=== PATIENT | female | born 1950 | race Caucasian/White ===

== ENCOUNTER 2017-05-13 11:25 | Day surgery (SDC) | payer OTHER, BC ==
[2017-05-13] MEDS ORDERED: MIDAZOLAM 2 MG/2 ML VIAL IVP ONE (11:29)
[2017-05-13] MEDS ORDERED: BENZOCAINE UNIT DOSE SPRAY HURRICAINE MM ONE (11:29)
[2017-05-13] MEDS ORDERED: ATROPINE SULFATE 1 MG/10 ML SYR IVP ONE (11:29)
[2017-05-13] MEDS ORDERED: fentaNYL 100 MCG/2 ML INJ IVP ONE (11:29)
[2017-05-13] MEDS ORDERED: NS 500 ML IV ONE (11:29)
--- NOTE | 2017-05-13 11:46 | CPEKG ---
Heart Rate: 129 RR Interval: 465 P-R Interval: 168 QRSD Interval: 80 QT Interval: 296 QTC Interval: 434 P [place]: 99 QRS [place]: 260 T Wave [place]: 55 EKG Severity - ABNORMAL ECG - EKG Impression: POSSIBLE INFERIOR INFARCT, AGE INDETERMINATE EKG Impression: ATRIAL FLUTTER, A-RATE 250 Electronically Signed By: Mannie Cid 13-May-2017 16:06:38
[2017-05-13 12:11] LABS: INR 1.02 (0.83-1.16); PROTIME(PATIENT) 13.6 SEC (12.0-15.0)
[2017-05-13] MEDS ORDERED: APIXABAN 5 MG TAB PO ONE (13:15)
--- NOTE | 2017-05-13 15:10 | PDHPUP ---
History & Physical Update H&P update statement: This history and physical update is based on an assessment of the patient which was completed after admission or registration (within 24 hours), but prior to the surgery/procedure. H&P update: H&P reviewed & patient examined, no change in patient's condition since H&P completed
[2017-05-13] MEDS ORDERED: LIDOCAINE 2% 100 MG/5 ML SYR ONE (15:11)
[2017-05-13] MEDS ORDERED: PROPOFOL 200 MG/20 ML VIAL ONE (15:11)
--- NOTE | 2017-05-13 15:29 | PDTEE1 ---
DEREK Cardioversion Procedure Procedure: electrical cardioversion, transesophageal echo Indications: other (Atrial Flutter) Consent: signed and in chart Anticoagulation: eliquis Procedural Details: Pads were placed in anterior-posterior position. DEREK probe was advanced and standard images obtained. There is no evidence of left atrial or left atrial appendage thrombus. Synchronized cardioversion attempt #1: 50J Synchronized cardioversion attempt #2: 100J Results: normal sinus rhythm Conclusions: other (Initial CV resulted in AFIB. Subsequnetly CV to NSR.)
--- NOTE | 2017-05-13 15:44 | CPEKG ---
Heart Rate: 72 RR Interval: 833 P-R Interval: 228 QRSD Interval: 86 QT Interval: 404 QTC Interval: 443 P [place]: 66 QRS [place]: -57 T Wave [place]: 51 EKG Severity - ABNORMAL ECG - EKG Impression: SINUS RHYTHM EKG Impression: FIRST DEGREE AV BLOCK EKG Impression: LEFT ATRIAL ABNORMALITY EKG Impression: LEFT ANTERIOR FASCICULAR BLOCK Electronically Signed By: Mannie Cid 13-May-2017 16:05:25
--- NOTE | 2017-05-13 16:23 | PDANEPAE ---
ANE History of Present Illness Patient presents for DEREK/Cardioversion ANE Past Medical History - Pulmonary History Hx Sleep Apnea: No ANE Review of Systems Review of Systems: ANE Patient History - Allergies Allergies/Adverse Reactions: No Allergies [NKDA] Allergy (Verified 05/13/17 11:29) - Home Medications Home medications: home medication list seen and reviewed - NPO status NPO Status: no food or drink >8 hours - Anes Hx Anes Hx: no prior problems - Smoking Hx Smoking Status: Former smoker ANE Labs/Vital Signs - Labs Result Diagrams: 05/13/17 11:45 - Vital Signs Height: 172.72 cm Weight: 80.739 kg ANE Physical Exam - Airway Neck exam: FROM Mallampati Score: Class 2 Mouth exam: normal dental/mouth exam - Pulmonary Pulmonary: no respiratory distress - Cardiovascular Cardiovascular: pulses symmetric bilaterally, other - ASA Status ASA Status: II ANE Anesthesia Plan Anesthesia Plan: GA with mask (RBA discussed)
--- NOTE | 2017-05-13 16:23 | POSTANESTH ---
Post Anesthetic Evaluation Cardiovascular Status: Similar to Pre-Op Cond Respiratory Status: Similar to Pre-op Cond. Level of Consciousness/Mental Status: Alert and Oriented Pain Control: Adequate, Prn Tx Ordered Nausea/Vomiting Control: Adequate, Prn Tx Ordered Complications Possibly Related to Anesthesia: None Noted
[2017-05-13] MEDS ORDERED: APIXABAN 5 MG TAB PO SCH ×2 (21:00)
== END 2017-05-13 16:24 | disposition home or self-care (01) ==
LOC: FCATH 11:25
PROVIDERS: ATTEND Internal Medicine Cardiovascular Disease
PROC: 5A2204Z Restoration of Cardiac Rhythm, Single (ICD-10-PCS; principal; 2017-05-13)
DX: R00.0 Tachycardia, unspecified (principal); I48.92 Unspecified atrial flutter
CPT/HCPCS: J2001; J2704

== ENCOUNTER 2017-05-22 10:36 | Day surgery (SDC) | payer OTHER, BC ==
[2017-05-22] MEDS ORDERED: NS 500 ML IV ONE (10:43)
[2017-05-22] MEDS ORDERED: MIDAZOLAM 2 MG/2 ML VIAL IVP ONE (10:43)
[2017-05-22] MEDS ORDERED: fentaNYL 100 MCG/2 ML INJ IVP ONE (10:43)
[2017-05-22] MEDS ORDERED: ATROPINE SULFATE 1 MG/10 ML SYR IVP ONE (10:43)
--- NOTE | 2017-05-22 11:02 | CPEKG ---
Heart Rate: 83 RR Interval: 723 QRSD Interval: 88 QT Interval: 376 QTC Interval: 442 QRS [place]: -69 T Wave [place]: 43 EKG Severity - ABNORMAL ECG - EKG Impression: ATRIAL FIBRILLATION EKG Impression: LEFT ANTERIOR FASCICULAR BLOCK Electronically Signed By: Jw Slater 22-May-2017 17:54:27
[2017-05-22 11:25] LABS: INR 1.23 (0.83-1.16); PROTIME(PATIENT) 15.7 SEC (12.0-15.0)
[2017-05-22] MEDS ORDERED: LIDOCAINE 1% 5 ML SDV ONE (12:29)
[2017-05-22] MEDS ORDERED: PROPOFOL 200 MG/20 ML VIAL ONE (12:29)
--- NOTE | 2017-05-22 12:47 | CPEKG ---
Heart Rate: 54 RR Interval: 1111 QRSD Interval: 90 QT Interval: 452 QTC Interval: 429 QRS [place]: -59 T Wave [place]: 37 EKG Severity - ABNORMAL ECG - EKG Impression: LEFT ANTERIOR FASCICULAR BLOCK EKG Impression: Sinus rhythm with baseline artifact Electronically Signed By: Jw Slater 22-May-2017 17:54:15
--- NOTE | 2017-05-22 18:31 | EPPROC ---
Electrophysiology Procedure Note: Procedure: CV Indication: Symptomatic AF procedure: pt sedated by anesthesia staff. Once sedated. 200J of synchronized DCCV given. pt converted to SR Conclusion: successful DCCV
== END 2017-05-22 13:36 | disposition home or self-care (01) ==
LOC: FCATH 10:36
PROVIDERS: ATTEND Internal Medicine Cardiovascular Disease
PROC: 5A2204Z Restoration of Cardiac Rhythm, Single (ICD-10-PCS; principal; 2017-05-22)
DX: I48.92 Unspecified atrial flutter (principal); R00.0 Tachycardia, unspecified
CPT/HCPCS: J0461; J2704

== ENCOUNTER → 2017-08-13 | Outpatient (CLI) | payer OTHER, BC | LOC: CIMAGING 12:25 | PROVIDERS: ATTEND Obstetrics & Gynecology | DX: N95.0 Postmenopausal bleeding (principal); D25.1 Intramural leiomyoma of uterus; N83.292 Other ovarian cyst, left side; N32.3 Diverticulum of bladder; R93.8 Abnormal findings on diagnostic imaging of other specified body structures | CPT/HCPCS: 76856-PO ==

== ENCOUNTER → 2018-02-18 | Outpatient (CLI) | payer OTHER, BC | LOC: FIMAGING 16:05 | PROVIDERS: ATTEND Obstetrics & Gynecology | DX: N95.0 Postmenopausal bleeding (principal) ==

== ENCOUNTER → 2018-08-17 | Outpatient (CLI) | payer OTHER, BC | LOC: BHFA 10:00 | PROVIDERS: ATTEND Internal Medicine Cardiovascular Disease | DX: I48.91 Unspecified atrial fibrillation (principal); I48.92 Unspecified atrial flutter; R00.0 Tachycardia, unspecified ==

== ENCOUNTER → 2018-09-11 | Outpatient (CLI) | payer OTHER, BC | LOC: FIMAGING 07:00 ==